=== PATIENT | female | born 1975 | race Caucasian/White ===

== ENCOUNTER 2017-01-02 19:27 | Emergency (ER) | payer MEDICAID, OTHER ==
[~2017-01-02] VITALS: Ht 157.5 cm; Wt 65.0 kg
[2017-01-02 19:30] VITALS: Ht 157.5 cm; Wt 65.0 kg
--- NOTE | 2017-01-02 22:06 | RADRPT ---
PROCEDURE: US Pelvis/OB. CLINICAL INDICATION: vaginal bleeding TECHNIQUE: Multiple sonographic images of the pelvis were obtained utilizing a transabdominal and endovaginal technique. The images were reviewed on a PACS workstation. COMPARISON: None. FINDINGS: There is a small irregular appearing cystic structure within the endometrium measuring 0.9 cm which would correspond to a calculated gestational age of 5 weeks and 3 days. No pole the visualized . There is an enlarged yolk sac noted. There is a small adjacent hypoechoic area, consistent with subchorionic hemorrhage, measuring 0.6 cm . The right ovary measures 3.4 x 2.2 x 1.8 cm. The left ovary measures 2.7 x 1.5 x 1.5 cm. There is a 1.0 cm simple cyst adjacent to the left ovary . No significant free fluid is present within the pelvis. RPTAT: AA IMPRESSION: Possible early abnormal appearing intrauterine at 5 weeks and 3 days, may represent a nonv iable . Small area of subchorionic hemorrhage. Small left paraovarian simple cyst. Close followup ultrasound and hCG is recommended. .Geoff York MD, MD Date Time Electronically viewed and signed by .Geoff York MD, on 01/02/2017 22:06 .S/
--- NOTE | 2017-01-02 22:42 | ERD ---
ER Documentation Chief Complaint Date/Time DATE: 01/02/17 TIME: 22:40 Chief Complaint c/o VB x 1 day. (+) 8 wks . HPI This is a 41-year-old female who says she is 9 weeks . She is complaining of some some vaginal spotting today but no cramps no back pain no fever. She saw her vein access technician yesterday when she started spotting he set up an ultrasound for later on in the week. She is here because she is concerned and wants to get to the bottom other issue at this time. ROS All systems reviewed and are negative except as per history of present illness. PMhx/Soc Medical and Surgical Hx: pt denies Medical Hx, pt denies Surgical Hx Hx Alcohol Use: No Hx Substance Use: No Hx Tobacco Use: No Smoking Status: Never smoker FmHx Family History: No coronary disease Physical Exam Vitals Vital Signs Date Time Temp Pulse Resp B/P Pulse Ox O2 Delivery O2 Flow Rate FiO2 01/02/17 19:30 99.0 83 18 116/65 96 Physical Exam Const: Well-developed, well-nourished Head: Atraumatic, normocephalic Eyes: Normal Conjunctiva, PERRLA, EOMI, normal sclera, no nystagmus ENT: Normal External Ears, Nose and Mouth, moist mucus membranes. Neck: Full range of motion. No meningismus, no lymphadenopathy. Resp: Clear to auscultation bilaterally, no wheezing, rhonchi, rales Cardio: Regular rate and rhythm, no murmurs, S1 S2 present Abd: Soft, non tender x 4, non distended. Normal bowel sounds, no guarding or rebound, no pulsitile abdominal masses or bruits Skin: No petechiae or rashes, no ecchymosis , no maculopapular rash Back: No midline or flank tenderness Ext: No cyanosis, or edema, FROM x 4, normal inspection, neurovascularly intact x 4 Neur: Awake and alert, STR 5/5 x 4, sensation intact x 4, no focal findings, cerebellum intact Psych: Normal Mood and Affect Results 24 hrs Laboratory Tests Test 01/02/17 20:30 Beta HCG, Quantitative 2757.3mIU/ml Procedures/MDM PROCEDURE: US Pelvis/OB. CLINICAL INDICATION: vaginal bleeding TECHNIQUE: Multiple sonographic images of the pelvis were obtained utilizing a transabdominal and endovaginal technique. The images were reviewed on a PACS workstation. COMPARISON: None. FINDINGS: There is a small irregular appearing cystic structure within the endometrium measuring 0.9 cm which would correspond to a calculated gestational age of 5 weeks and 3 days. No pole the visualized. There is an enlarged yolk sac noted. There is a small adjacent hypoechoic area, consistent with subchorionic hemorrhage, measuring 0.6 cm. The right ovary measures 3.4 x 2.2 x 1.8 cm. The left ovary measures 2.7 x 1.5 x 1.5 cm. There is a 1.0 cm simple cyst adjacent to the left ovary. No significant free fluid is present within the pelvis. RPTAT: AA IMPRESSION: Possible early abnormal appearing intrauterine at 5 weeks and 3 days, may represent a nonviable . Small area of subchorionic hemorrhage. Small left paraovarian simple cyst. Close followup ultrasound and hCG is recommended. .Geoff York MD, MD Date Time Electronically viewed and signed by .Geoff York MD, MD on 01/02/2017 22: 06 .S/ CC: KINDRA HOLLINGSWORTH DO Beta hCGs 2787. Blood type O+ The patient has a visible yolk sac which is seen with the beta of 7500. The patient's beta is lower than this indicating a failed . I will inform the patient to follow-up with her vein access technician for follow-up hCGs and possible D&C Departure Diagnosis: Primary Impression: Missed Condition: Stable Patient Instructions: Missed Miscarriage KINDRA HOLLINGSWORTH DO Jan 02, 2017 22:42
[2017-01-02 23:00] VITALS: BP 120/56; PULSE 66; RESP 17; TEMP 98.8
== END 2017-01-02 23:00 | disposition home or self-care (01) ==
LOC: FTE 19:27
DX: O02.1 Missed abortion (principal)
CPT/HCPCS: 36415; 76801; 76817; 84702; 86900; 86901; Z7502